=== PATIENT | male | born 1980 | race Caucasian/White ===

== ENCOUNTER 2022-05-21 11:03 | Emergency (ER) | payer MEDICAID, OTHER ==
[~2022-05-21] VITALS: Ht 185.4 cm; Wt 86.4 kg
[~2022-05-21 11:03] MED LIST: motrin prn
[2022-05-21 11:15] VITALS: BP 121/62
[2022-05-21] MEDS ORDERED: ceFAZolin 1gm IM kit IM ONE (11:30)
[2022-05-21] MEDS ORDERED: TETanus/Pertussis (Acell)/Diphther VAC/PF (Tdap-Adult) 0.5ml syringe IMVAC ONE (11:30)
[2022-05-21] MEDS ORDERED: bacitracin 15gm ointment TP ONE (11:30)
[2022-05-21] MEDS ORDERED: LIDOcaine 1% W/epiNEPHrine 1:200,000 10ml vial IJ ONE (11:35)
[2022-05-21] MEDS ORDERED: LIDOCAINE 1%/EPI 1:100,000 inj. 10 ML multi-dose vial IJ ONE (11:40)
[2022-05-21] MEDS ORDERED: HYDR-3965 PO (13:39)
[2022-05-21] MEDS ORDERED: SULF1TAB49 PO (13:39)
== END 2022-05-21 14:14 | disposition home or self-care (01) ==
LOC: ER 11:04
DX: Z89.021 Acquired absence of right finger(s) (principal)
CPT/HCPCS: 12001; 90471; 90715; 96372; 99284; J0690; A6449

== ENCOUNTER 2022-05-22 06:43 | Emergency (ER) | payer OTHER ==
[~2022-05-22 06:43] MED LIST changes: +HYDR-3965 PO; +SULF1TAB49 PO
== END 2022-05-22 07:55 | disposition left against medical advice (07) ==
LOC: ER 06:44
DX: Z48.00 Encounter for change or removal of nonsurgical wound dressing (principal); Z53.21 Procedure and treatment not carried out due to patient leaving prior to being seen by health care provider

== ENCOUNTER 2022-05-24 05:48 | Emergency (ER) | payer OTHER ==
[~2022-05-24] VITALS: Ht 185.4 cm; Wt 83.4 kg
[2022-05-24 05:52] VITALS: BP 136/67
== END 2022-05-24 07:19 | disposition home or self-care (01) ==
LOC: ER 05:49
DX: S68.119D Complete traumatic metacarpophalangeal amputation of unspecified finger, subsequent encounter (principal); Z48.00 Encounter for change or removal of nonsurgical wound dressing; X58.XXXD Exposure to other specified factors, subsequent encounter
CPT/HCPCS: 99283

== ENCOUNTER 2023-06-13 15:31 | Emergency (ER) | payer MEDICAID, OTHER ==
[~2023-06-13] VITALS: Ht 185.4 cm; Wt 85.2 kg
[~2023-06-13 15:31] MED LIST changes: -HYDR-3965 PO; -SULF1TAB49 PO
[2023-06-13 15:33] VITALS: BP 157/86; PULSE 78; TEMP 98.2; O2SAT 99
[2023-06-13] MEDS ORDERED: dexamethasone sod phosphate 10mg/ml inj PO STA (16:51)
[2023-06-13] MEDS ORDERED: BENZ-38 PO (17:54)
[2023-06-13] MEDS ORDERED: PRED20TA PO (17:54)
[2023-06-13 18:17] VITALS: RESP 20
== END 2023-06-13 23:03 | disposition home or self-care (01) ==
LOC: ER 15:32
DX: J06.9 Acute upper respiratory infection, unspecified (principal); Z20.822 Contact with and (suspected) exposure to COVID-19; Z79.899 Other long term (current) drug therapy
CPT/HCPCS: 36415; 71045; 87502; 87503; 87634; 87811; 99284; J1100

== ENCOUNTER 2024-10-12 16:46 | Emergency (ER) | payer MEDICAID, OTHER ==
[~2024-10-12] VITALS: Ht 185.4 cm; Wt 86.4 kg
[2024-10-12 17:47] LABS: BASOPHILS % (AUTO) 0.3 % (0-1); EOSINOPHILS # (AUTO) 0.2 X10'3 (0-0.9); EOSINOPHILS % (AUTO) 3.4 % (0-6); HEMATOCRIT 42.5 % (42.0-52.0); HEMOGLOBIN 14.8 g/dl (14.0-17.9); LYMPHOCYTES # (AUTO) 1.4 X10'3 (1.1-4.8); LYMPHOCYTES % (AUTO) 22.7 % (21-51); MEAN CORPUSCULAR HEMOGLOBIN 32.6 PG (27.0-31.0); MEAN CORPUSCULAR HGB CONC 34.8 g/dL (33.0-36.5); MEAN CORPUSCULAR VOLUME 93.7 FL (78-98); MEAN PLATELET VOLUME 9.7 FL (7.4-10.4); MONOCYTES # (AUTO) 0.6 X10'3 (0-0.9); MONOCYTES % (AUTO) 9.5 % (2-12); NEUTROPHILS % (AUTO) 64.1 % (42-75); PLATELET COUNT 151 X10'3 (140-440); RED BLOOD COUNT 4.54 X10'6 (4.70-6.10); RED CELL DISTRIBUTION WIDTH 13.2 % (11.5-14.5); WHITE BLOOD COUNT 6.2 X10'3 (4.5-11.0)
[2024-10-12 17:56] LABS: ALBUMIN 3.6 G/DL (3.4-5.0); ANION GAP 5 (8-16); BLOOD UREA NITROGEN 11 MG/DL (7-18); BUN/CREATININE RATIO 9.7 (10.0-20.0); CALCIUM 8.9 MG/DL (8.5-10.1); CHLORIDE 105 MMOL/L (99-107); CREATININE 1.13 MG/DL (0.60-1.10); GLUCOSE 78 MG/DL (70-104); POTASSIUM 4.4 MMOL/L (3.5-5.1); SODIUM 142 MMOL/L (135-145); TOTAL CARBON DIOXIDE 31.6 MMOL/L (24-32); eCRCL 92 ML/MIN; eGFR 70 ML/MIN
--- NOTE | 2024-10-12 18:03 | Physician Documentation ---
History of Present Illness ~ Chief Complaint: Abscess Stated Complaint: LUMP BEHIND EAR AND LOSS OF HEARING Time Seen by MD: 20:38 Primary Medical Doctor: [facility] This is a 44-year-old male who presents with one month of progressively worsening pain and swelling to his face and neck just inferior to his left ear, patient reports that for the past six months there has been a small lump in the area though in the past month that has begun to increase in size significantly, patient reports that he was seen at [facility] received an ultrasound of the area one month ago was told it was a cyst and there was a mass under it that would need an MRI, patient reports he is awaiting this MRI. Patient reports that since seeing procedure urgent care the swelling to the area has increased. Patient reports pain radiates into his ear and up into his left sikh. Patient reports no fever. Tetanus Within 5 Years: No Medication Reconciliation Allergies: Coded Allergies: No Known Allergies (Unverified , 10/12/24) Miscellaneous Medications [motrin prn], (Reported) Past Medical History Past Medical History: No Pertinent History Past Surgical History: noncontributory Alcohol Use: Occasionally Drug Use: none Lives with: Family Lives In: Home Occupation: employed Review of Systems ROS All review of systems negative except as per HPI Physical Exam Vital Signs: Temperature: 98.1, Heart Rate: 77, Respiratory Rate: 16, BP: 132/88, Pulse Oximetry: 99, Weight: 86.360 Physical Exam General: Patient is awake, alert, oriented x4 in no acute distress and well appearing.~ Head: Normocephalic and atraumatic. Eyes: Conjunctival normal. EOMI. PERRL. ENT: Mucous membranes moist. Neck: Supple, trachea is midline. 5 cm x 5 cm lump just posterior inferior to left ear with tenderness to palpation Chest: Clear to auscultation bilaterally without rales, rhonchi, or wheezes. There is no accessory muscle use or retractions. Cardiac: RRR without murmurs, gallops, or rubs. Progress Results/Orders Results/Orders Orders - NICHO SUMMERS MD Ct Neck Soft Tissues (10/12/24 21:30) Completed Orders - NICHO SUMMERS MD Ct Neck Soft Tissues (10/12/24 21:30) Normal Saline 1000ml (Sodium Chloride 10 (10/12/24 20:50) Ketorolac Trometh 15mg/Ml Vial (Toradol (10/12/24 20:50) Iohexol 300mg/Ml 100ml Inj. (Omnipaque-3 (10/12/24 20:55) Medications Received in ER Medications (Trade) Dose Ordered Sig/Stephane Route PRN Reason Start Time Stop Time Status Last Admin Dose Admin Sodium Chloride 1,000 ml @ 1,000 mls/hr ONCE ONCE IV 10/12/24 20:50 10/12/24 21:49 DC 10/12/24 21:15 1,000 MLS/HR (Toradol injection) 15 mg ONCE ONCE IV 10/12/24 20:50 10/12/24 20:52 DC 10/12/24 21:15 15 MG Vital Signs 10/12/24 10/12/24 10/12/24 10/12/24 16:58 18:53 19:27 21:55 Temp 98.1 98.1 98.1 Pulse 77 53 58 Resp 16 19 19 B/P (MAP) 132/88 124/70 (88) 121/70 (87) Pulse Ox 99 Laboratory Tests Test 10/12/24 17:15 White Blood Count 6.2 Red Blood Count 4.54 L Hemoglobin 14.8 Hematocrit 42.5 Mean Corpuscular Volume 93.7 Mean Corpuscular Hemoglobin 32.6 H Mean Corpuscular Hemoglobin Concent 34.8 Red Cell Distribution Width 13.2 Platelet Count 151 Mean Platelet Volume 9.7 Neutrophils (%) (Auto) 64.1 Lymphocytes (%) (Auto) 22.7 Monocytes (%) (Auto) 9.5 Eosinophils (%) (Auto) 3.4 Basophils (%) (Auto) 0.3 Neutrophils # (Auto) 4.0 Lymphocytes # (Auto) 1.4 Monocytes # (Auto) 0.6 Eosinophils # (Auto) 0.2 Basophils # (Auto) 0.0 CBC Comment Sodium Level 142 Potassium Level 4.4 Chloride Level 105 Carbon Dioxide Level 31.6 Anion Gap 5 L Blood Urea Nitrogen 11 Creatinine 1.13 H Estimated GFR/1.73 m2 70 BUN/Creatinine Ratio 9.7 L Glucose Level 78 Calcium Level 8.9 Albumin 3.6 Procalcitonin < 0.05 Chemistry Comments Medical Decision Making Findings Patient presents to the emergency room for evaluation of mass behind it was left ear. Differentials include but are not limited to epidermal inclusion cyst, abscess, tumor, foreign body. Patient endorses significant discomfort therefore CT scan was performed it was along with labs. Labs were reassuring and CT scan shows solid mass and it was not consistent with an abscess. Possible tumor. The need to follow up with his doctor discussed. Possibility of his mass becoming infected given significant increase in pain recently therefore we will prescribe a course of antibiotics and hopefully this helps. Departure Disposition: HOME / SELF CARE / HOMELESS Impression: Primary Impression: Mass in neck Condition: Stable Discharge Instructions: General Discharge Instructions Additional Instructions: CT scan performed today did not show an abscess. Whatever this mass is it was solid in nature and needs follow up with an MRI as scheduled. Do not touch/manipulate/squeeze. We will treat you and case this it was becoming infected. Ibuprofen and Tylenol may be taken together for discomfort. Referrals: NO PRIMARY CARE PROVIDER (PCP) Prescriptions Sulfamethoxazole/Trimethoprim (Bactrim Ds Tablet) 800 Mg-160 Mg Tablet 1 TAB PO Q12H for 7 Days, #14 TAB Prov: NICHO SUMMERS MD 10/12/24 Hydrocodone Bit/Acetaminophen 5/325 MG ([place]ul[place] 5/325 MG) 5 Mg/325 Mg Tablet 1 TAB PO Q4-6 hours PRN for pain, #7 TAB Prov: NICHO SUMMERS MD 10/12/24 Education Educated: Patient Educated regarding: diagnosis, treatment, need for follow up Signature Scribe Signature: No scribe Attestation: The note accurately reflects work and decisions made by me.Nicho Summers MD 10/12/24 22:31 IDA DAVIS October 12, 2024 18:03 NICHO SUMMERS MD October 12, 2024 21:10
[2024-10-12] MEDS ORDERED: iohexol 300mg/ml 100ml inj. ONE (20:55)
[2024-10-12] MEDS: ketorolac trometh 15mg/ml vial 15 MG/ML ML IV ONE (21:15)
[2024-10-12] MEDS: normal saline 1000ml 1,000 ML IV ONE (21:15)
--- NOTE | 2024-10-12 22:20 | RADIOLOGY REPORT ---
Clinical History mass behind left ear Comparison None Technique: Contiguous axial CT images of the neck after intravenous contrast administration. Coronal and sagittal reformation was performed. All CT scans at this medical facility are performed using dose modulation techniques as appropriate t o a performed exam including the following: Automated exposure control was utilized; adjustment of th e mA and/or kV according to patient size; and use of iterative reconstruction technique. All CT studies are reported to the Dose Index Registry of the [employer]. Contrast: OMNI 300 100ML Radiation Dose: CTDI (mGy): 14.93; DLP (mGy-cm): 562.54 IDA GALLARDO, [id number] Findings: A heterogeneous, multiseptated cystic and solid complex mass arises from the inferior aspect of the l eft parotid gland and measures approximately 36 x 24 x 40 mm. It abuts the anterior border of the le ft sternocleidomastoid muscle. The right parotid, thyroid, and bilateral submandibular glands are normal. No lymphadenopathy is in the neck. The nasopharynx, oropharynx, hypopharynx, larynx, and trachea are patent. The imaged portions of both lung apices are clear. The imaged portions of the paranasal sinuses and mastoid air cells are clear. The imaged portions of the orbits and brain parenchyma are grossly normal. No acute fracture or bony destructive lesion is in the skull base or cervical spine. Impression: 1. A heterogeneous 40 mm cystic and solid mass arising from the left inferior parotid gland may repr esent a Warthin tumor or a pleomorphic adenoma, among other etiologies. This report was electronically signed by Herber Pan MD on 10/12/2024 10:16:25 PM.
[2024-10-12] MEDS ORDERED: SULF1TAB49 PO (22:31)
[2024-10-12] MEDS ORDERED: HYDR-3965 PO (22:31)
[2024-10-12 22:46] VITALS: BP 120/87; PULSE 87; RESP 16; TEMP 98.1; O2SAT 100
[2024-10-12] MEDS: ondansetron 4mg rapidly disintigrating tab PO ONE (22:50)
[2024-10-12] MEDS: sulfamethoxazole/trimethoprim DS (800/160mg) tablet PO ONE (22:50)
== END 2024-10-12 22:46 | disposition home or self-care (01) ==
LOC: ER 16:47
DX: R22.1 Localized swelling, mass and lump, neck (principal)
CPT/HCPCS: 36415; 70491; 80048; 84145; 85025; 96361; 96374; 99285; J1885; J7030; Q9967

== ENCOUNTER 2025-04-25 13:09 | Emergency (ER) | payer MEDICAID ==
[~2025-04-25] VITALS: Ht 185.4 cm; Wt 87.5 kg
[2025-04-25 13:16] VITALS: TEMP 98
[2025-04-25 13:55] LABS: MEAN PLATELET VOLUME 9.9 FL (7.4-10.4); RED CELL DISTRIBUTION WIDTH 13.7 % (11.5-14.5)
[2025-04-25 14:09] LABS: CREATININE 1.07 MG/DL (0.60-1.10); TOTAL CARBON DIOXIDE 31.2 MMOL/L (24-32); eCRCL 97 ML/MIN; eGFR 74 ML/MIN
[2025-04-25 15:12] LABS: LEUKOCYTE ESTERASE ,URINE MODERATE (Neg); NITRITES, URINE POSITIVE (Neg); OCCULT BLOOD,URINE LARGE (Neg)
[2025-04-25 15:21] LABS: UA COLLECTION TYPE CLN CATCH MIDSTREAM
[2025-04-25 15:26] LABS: SQUAMOUS EPITHELIAL CELL,UR NONE SEEN /LPF (FEW)
--- NOTE | 2025-04-25 15:36 | Physician Documentation ---
History of Present Illness Chief Complaint: Flank Pain Stated Complaint: KIDNEY PAIN Time Seen by MD: 14:27 Primary Medical Doctor: GUERRERO Mode of Arrival: POV HPI 44-year-old male presents to the ED with a complaint of right flank pain for two days. States he does have a history of kidney stones denies any fevers but reports general malaise and nausea vomiting.He feels as though he can not get in a comfortable position. Medication Reconciliation Allergies: Coded Allergies: No Known Allergies (Unverified , 10/12/24) Scheduled Sulfamethoxazole/Trimethoprim (Septra Ds Tab), 1 TAB PO Q12H Miscellaneous Medications [motrin prn], (Reported) Past Medical History Past Medical History: No Pertinent History Past Surgical History: noncontributory Alcohol Use: Occasionally Drug Use: none Lives with: Family Lives In: Home Occupation: employed Review of Systems All Other Systems at this time: Reviewed and Negative ROS As stated above in the HPI, otherwise all systems are reviewed and negative. Physical Exam Vital Signs: Temperature: 98.0, Source: Temporal, Heart Rate: 71, Respiratory Rate: 18, BP: 121/69, Pulse Oximetry: 95, Weight: 87.500 Oxygen Flow Rate: 0 Physical Exam General: Alert, no apparent distress. Respiratory: Lungs clear, no respiratory distress. . Cardiovascular: Regular rate and rhythm, no murmurs. Gastrointestinal: Soft, nontender, nondistended. Bowels sounds present. Neurologic: Oriented x4. Psychiatric: Normal mood and affect. Skin: Normal color, warm and dry. No edema, no ecchymosis. Progress Results/Orders Results/Orders Orders - GAVINO SHERIDAN MANAGER COST Ct Abdomen Pelvis (04/25/25 15:31) Completed Orders - GAVINO SHERIDAN MANAGER [employer] Ketorolac Trometh 30mg/Ml Vial (Toradol (04/25/25 15:20) Ct Abdomen Pelvis (04/25/25 15:31) Vital Signs 04/25/25 04/25/25 13:16 14:42 Temp 98.0 Pulse 71 71 Resp 18 18 B/P (MAP) 158/79 121/69 (86) Pulse Ox 100 95 O2 Flow Rate 0 0 Laboratory Tests Test 04/25/25 13:32 04/25/25 14:29 White Blood Count 9.7 Red Blood Count 4.79 Hemoglobin 15.8 Hematocrit 45.3 Mean Corpuscular Volume 94.6 Mean Corpuscular Hemoglobin 33.0 H Mean Corpuscular Hemoglobin Concent 34.8 Red Cell Distribution Width 13.7 Platelet Count 146 Mean Platelet Volume 9.9 Neutrophils (%) (Auto) 81.2 H Lymphocytes (%) (Auto) 9.8 L Monocytes (%) (Auto) 6.8 Eosinophils (%) (Auto) 1.6 Basophils (%) (Auto) 0.6 Neutrophils # (Auto) 7.9 H Lymphocytes # (Auto) 0.9 L Monocytes # (Auto) 0.7 Eosinophils # (Auto) 0.2 Basophils # (Auto) 0.1 CBC Comment Sodium Level 140 Potassium Level 4.1 Chloride Level 103 Carbon Dioxide Level 31.2 Anion Gap 6 L Blood Urea Nitrogen 7 Creatinine 1.07 Estimated GFR/1.73 m2 74 BUN/Creatinine Ratio 6.5 L Glucose Level 95 Calcium Level 8.8 Total Bilirubin 0.5 Aspartate Amino Transf (AST/SGOT) 22 Alanine Aminotransferase (ALT/SGPT) 24 Alkaline Phosphatase 106 Total Protein 8.3 H Albumin 3.8 Globulin 4.5 H Albumin/Globulin Ratio 0.8 L Lipase 118 H Chemistry Comments Urine Specimen Description Cln catch midstream Urine Color Yellow Urine Clarity Cloudy Urine pH 7.5 Urine Specific Story 1.020 Urine Protein 100 H Urine Glucose (UA) Negative Urine Ketones Negative Urine Occult Blood Large H Urine Nitrite Positive H Urine Bilirubin Negative Urine Urobilinogen 0.2 Urine Leukocyte Esterase Moderate H Urine RBC 50-100 Urine WBC 50-100 H Urine Squamous Epithelial Cells None seen Urine Bacteria 1+ Urine Culture Indicated Indicated Volume Urine Centrifuged 10 ml Urine Comment Medical Decision Making Additional information obtaine: old records Findings CT came back negative for any kidney stones however patient's UA and CT both indicate high likelihood of cystitis. Going to treat this patient empirically starting here in ED and have him follow up in the outpatient setting Differential Dx:Considerations: Appendicitis, Bowel obstruction, Constipation, Diverticular disease, Testicular torsion, Urinary tract infection Departure Disposition: 01 HOME / SELF CARE / HOMELESS Impression: Primary Impression: Acute urinary tract infection Condition: Stable Discharge Instructions: Urinary Tract Infection, Adult Additional Instructions: Your CT did not show any signs of kidney stones however your laboratory results indicate that you have a notable urinary tract infection which would explain your symptoms.. take medications as directed Referrals: NO PRIMARY CARE PROVIDER (PCP) Prescriptions Sulfamethoxazole/Trimethoprim (Septra Ds Tab) 800 Mg/160 Mg Tablet 1 TAB PO Q12H for 10 Days, #20 TAB Prov: GAVINO SHERIDAN MANAGER [employer] 04/25/25 Education Educated: Patient Educated regarding: diagnosis Signature Scribe Signature: h Attestation: Scribed for Gavino Sheridan Contour Sander by Gavino Sheridan - MADELYN . 04/25/25 15:54 GAVINO SHERIDAN NP Apr 25, 2025 15:36
--- NOTE | 2025-04-25 15:50 | RADIOLOGY REPORT ---
EXAM: CT CT ABDOMEN PELVIS HISTORY: Flank pain TECHNIQUE: Volumetric multidetector CT images of the abdomen and pelvis were obtained after the administration of intravenous contrast. All CT scans at this facility use dose modulation, iterative reconstruction, and/or weight based dosing when appropriate to reduce radiation dose to as low as reasonably achievable. COMPARISON: None FINDINGS: [LOWER CHEST]: The partially visualized lung bases are clear without a pleural effusion. [LIVER]: Normal hepatic size without suspicious focal lesion. [GALLBLADDER AND BILIARY TREE]: Surgically absent. [SPLEEN]: Unremarkable. [PANCREAS]: Unremarkable. [ADRENAL GLANDS]: Unremarkable [KIDNEYS]: No hydronephrosis. No nephroureterolithiasis. [BLADDER]: Circumferential bladder wall thickening, which may be seen in the setting of acute versus chronic cystitis and correlate with urinalysis. [REPRODUCTIVE ORGANS]: Unremarkable. [BOWEL/MESENTERY]: Stomach is normal. No CT evidence of bowel obstruction. normal appendix. Mild stool burden. [ASCITES]: Absent [LYMPHADENOPATHY]: No pathologically enlarged lymph nodes by CT size criteria [VASCULATURE]: No aneurysmal dilatation. [ABDOMINAL WALL]: Soft tissue /subcutaneous adipose tissue edema/ stranding of the right posterior flank without drainable fluid collection [MUSCULOSKELETAL]: No acute fracture or aggressive focal osseous lesion. Multifocal degenerative change of the visualized spine. IMPRESSION: 1. Circumferential bladder wall thickening and correlate with urinalysis for underlying acute versus chronic cystitis. 2. No hydronephrosis or nephroureterolithiasis. 3. Subcutaneous adipose tissue stranding of the right posterior flank without drainable fluid collection. Correlate for soft tissue contusion versus other etiology
[2025-04-25] MEDS ORDERED: SULF1TAB45 PO (15:54)
[2025-04-25 16:04] VITALS: BP 125/74; PULSE 68; RESP 20; O2SAT 100
[2025-04-25] MEDS: sulfamethoxazole/trimethoprim DS (800/160mg) tablet PO ONE (16:05)
[2025-04-25] MEDS: ketorolac trometh 30MG/ML vial 30 MG/ML VIAL IM ONE (16:05)
== END 2025-04-25 16:14 | disposition home or self-care (01) ==
LOC: ER 13:10
DX: N39.0 Urinary tract infection, site not specified (principal)
CPT/HCPCS: 36415; 74176; 80053; 81001; 83690; 85025; 87088; 96372; 99285; J1885; 87077; 87186